=== PATIENT | female | born 2000 | race Caucasian/White ===

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

== ENCOUNTER 2021-04-14 06:50 | Emergency (ER) | payer OTHER ==
[~2021-04-14] VITALS: Ht 172.7 cm; Wt 163.8 kg
[~2021-04-14 06:50] MED LIST: BENZ100C PO; ONDA4TAB12 PO
--- NOTE | 2021-04-14 07:48 | PHYS DOC ---
Past History Past Medical History: No Pertinent History Additional Past Medical Histor: Miscarriages. Past Surgical History: No Surgical History Additional Smoking Information: vaps Alcohol Use: None Drug Use: Marijuana General Adult EDM: Chief Complaint: SHORTNESS OF BREATH HPI: HPI: 20-year-old female presents with 2-day history of cough, congestion, body aches, fatigue. She is not vaccinated against COVID-19. She has not tested positive for COVID-19 in the past. She has not had a fever above 100. Review of Systems: Review of Systems: Constitutional: Denies fever or chills. Body aches, fatigue Eyes: Denies change in visual acuity HENT: Denies nasal congestion or sore throat Respiratory: Cough with intermittent shortness of breath Cardiovascular: Denies chest pain or edema GI: Denies abdominal pain, nausea, vomiting, bloody stools or diarrhea : Denies dysuria Musculoskeletal: Denies back pain or joint pain Integument: Denies rash Neurologic: Denies headache, focal weakness or sensory changes Endocrine: Denies polyuria or polydipsia Lymphatic: Denies swollen glands Psychiatric: Denies depression or anxiety Allergies: Allergies: Allergies Coded Allergies Type Severity Reaction Last Updated Verified No Known Drug Allergies 04/14/21 No Physical Exam: PE: Constitutional: Well developed, well nourished, morbidly obese, no acute distress, non-toxic appearance. [] HENT: Normocephalic, atraumatic, bilateral external ears normal, oropharynx mois t, no oral exudates, nose normal. [] Eyes: PERRLA, EOMI, conjunctiva normal, no discharge. [] Neck: Normal range of motion, no tenderness, supple, no stridor. [] Cardiovascular: Heart rate 97, regular rhythm, no murmur [] Lungs & Thorax: Bilateral breath sounds clear to auscultation [] Abdomen: Bowel sounds normal, soft, no tenderness, no masses, no pulsatile masses. [] Skin: Warm, dry, no erythema, no rash. [] Back: No tenderness, no CVA tenderness. [] Extremities: No tenderness, no cyanosis, no clubbing, ROM intact, no edema. [] Neurologic: Alert and oriented X 3, normal motor function, normal sensory function, no focal deficits noted. [] Psychologic: Affect normal, judgement normal, mood normal. [] Current Patient Data: Vital Signs: Vital Signs Date Time Temp Pulse Resp B/P (MAP) Pulse Ox O2 Delivery O2 Flow Rate FiO2 04/14/21 07:17 99.0 105 18 133/85 (101) 98 Room Air EKG: EKG: [] Radiology/Procedures: Radiology/Procedures: [] Heart Score: C/O Chest Pain: N/A Risk Factors: Risk Factors: DM, Current or recent (<one month) smoker, HTN, HLP, family history of CAD, obesity. Risk Scores: Score 0 - 3: 2.5% MACE over next 6 weeks - Discharge Home Score 4 - 6: 20.3% MACE over next 6 weeks - Admit for Clinical Observation Score 7 - 10: 72.7% MACE over next 6 weeks - Early Invasive Strategies Course & Med Decision Making: Course & Med Decision Making Pertinent Labs and Imaging studies reviewed. (See chart for details) Influenza and COVID-19 tests have been performed. Results are pending and patient will be notified. Her blood pressures within normal limits. Her oxygen saturation is 99% on room air. She does not meet admission criteria. She is stable for discharge at this time. [] Dragon Disclaimer: Dragon Disclaimer: This electronic medical record was generated, in whole or in part, using a voice recognition dictation system. Departure Departure: Impression: Primary Impression: Suspected 2019 novel coronavirus infection Additional Impression: Morbid obesity with BMI of 50.0-59.9, adult Disposition: HOME / SELF CARE / HOMELESS Condition: STABLE Referrals: LUIS DASILVA DO (PCP) Patient Instructions: Viral Syndrome Additional Instructions: You have been tested for or diagnosed with COVID-19. It is an infection caused by a new type of coronavirus. COVID-19 will cause cold-like or mild flu symptoms in most. It can cause more severe symptoms like problems breathing in some. There is no treatment for COVID-19. The body will clear the infection over time. Self-care will help to ease discomfort. Steps to Take: Self-Care Rest as needed. Healthy habits may help you feel better. Steps include: Choose healthy foods including fruits and vegetables. Drink water throughout the day. Get plenty of sleep each night. If you smoke, try to quit. It may ease breathing. Avoid alcohol. Keep Others Healthy The virus can spread to others. Droplets are released every time you sneeze or cough. The droplets can get into the mouth, nose, or eyes of people near you and lead to infection. To lower the chances of spreading COVID-19 to others: Stay at home until your doctor has said it is safe to leave. If you tested positive this will mean staying isolated until both of the following are true: At least 7 days have passed since the start of illness. You are free of fever for at least 72 hours without the use of medicine. During this time: - Avoid public areas, events, or transportation. Do not return to work or school until your doctor has said it is safe to do so. - Call ahead if you need to go to a medical center. Let them know you may have COVID-19. It will help them guide you where to go. They may also ask you to wear a facemask when you come to the office. - If you call for emergency medical services, let them know you may have COVID- 19. While at home: - Try to avoid close contact with others. Stay about 6 feet away. - If possible, spend most of your time in a separate room from others. - Use a face mask if you will be in close contact with others such as sharing a room or vehicle. - Have someone wipe down common surfaces in the home. Use household engine monitor every day on areas like doorknobs, counters, or sinks. - Cough or sneeze into a tissue. Throw the tissue away right after use. If a tissue is not available, cough or sneeze into your elbow. - Wash your hands often. Wash them after sneezing or coughing. Use soap and water and wash for at least 20 seconds. Alcohol based hand roller cleaner can be used if soap and water is not available. - Do not prepare food for others. Avoid sharing personal items like forks, spoons, or toothbrushes. - Avoid close contact with pets while you are sick. There is no evidence of the virus passing to pets. This is a safety step until more is known about this virus. Isolation can be frustrating. Social interaction can help. Keep in touch with friends and family through phone and tech options. You can still interact with others in your home, just keep a safe distance of about 6 feet. Follow-up: Your doctors office will check in with you to see if there are any changes in your health. You may be asked to keep track of symptoms to share with them. They will also le t you know when you are clear to be in public again. Problems to Look Out For: Contact your doctor if your recovery is not going as you expect. Get emergency care if you have problems such as: - Trouble breathing - Nonstop chest pain or pressure - Changes in awareness, confusion, or problems waking - Lips or face have bluish color - Worsening of symptoms If you think you have an emergency, call for emergency medical services right away. As taken from [facility] MADISON CARROLL DO Apr 14, 2021 07:48
[2021-04-14 08:24] LABS: INFLUENZA A PATIENT NEGATIVE (NEGATIVE); INFLUENZA B PATIENT NEGATIVE (NEGATIVE)
[2021-04-14 08:45] VITALS: BP 147/87
== END 2021-04-14 08:45 | disposition home or self-care (01) ==
LOC: ER 06:50
DX: R05.9 Cough, unspecified (principal); R09.81 Nasal congestion; R53.83 Other fatigue; F17.200 Nicotine dependence, unspecified, uncomplicated; E66.01 Morbid (severe) obesity due to excess calories; Z20.822 Contact with and (suspected) exposure to COVID-19; Z68.43 Body mass index [BMI] 50.0-59.9, adult
CPT/HCPCS: 87804; 99283; C9803; U0003

== ENCOUNTER 2021-04-18 15:00 | Emergency (ER) | payer OTHER ==
[~2021-04-18] VITALS: Ht 172.7 cm; Wt 162.6 kg
[2021-04-18 16:28] VITALS: BP 152/100
[2021-04-18] MEDS ORDERED: ALBUTEROL SULFATE 8GM INHALER. INH ONE (17:30)
[2021-04-18 17:48] LABS: BASO % 0 % (0-3); EOS # 0.3 x10^3/uL (0.0-0.7); EOS % 3 % (0-3); HEMATOCRIT 41.3 % (36.0-47.0); HEMOGLOBIN 13.6 g/dL (12.0-15.5); LYMPH # 3.9 x10^3/uL (1.0-4.8); LYMPH % 39 % (24-48); MEAN CORPUSCULAR HEMOGLOBIN 27 pg (25-35); MEAN CORPUSCULAR HGB CONC 33 g/dL (31-37); MEAN CORPUSCULAR VOLUME 83 fL (79-100); MONO # 0.9 x10^3/uL (0.0-1.1); MONO % 9 % (0-9); NEUT % 49 % (31-73); PLATELET COUNT 338 x10^3/uL (140-400); RED BLOOD COUNT 4.97 x10^6/uL (3.50-5.40); RED CELL DISTRIBUTION WIDTH 14.3 % (11.5-14.5); WHITE BLOOD COUNT 10.2 x10^3/uL (4.0-11.0)
--- NOTE | 2021-04-18 18:02 | RAD ---
EXAMINATION: Chest radiograph. VIEWS: 1 COMPARISON: 07/17/2020 INDICATION:20 years, Female, cough. FINDINGS: Normal cardiomediastinal silhouette. Patchy airspace opacity in the right lung base. No pleural effus ion or pneumothorax. No acute osseous process. IMPRESSION: Patchy airspace opacity in the right lung base, may represent atelectatic changes versus pneumonia. Electronically signed by: Elizabeth Silva MD (04/18/2021 6:00 PM) [id number]
[2021-04-18] MEDS ORDERED: PRED20TA PO (18:27)
[2021-04-18] MEDS ORDERED: BACI3.5O4 OD (18:27)
[2021-04-18] MEDS ORDERED: AMOX500C PO (18:27)
--- NOTE | 2021-04-18 18:31 | PHYS DOC ---
Past History Past Medical History: No Pertinent History Additional Past Medical Histor: Miscarriages. Past Surgical History: No Surgical History Alcohol Use: None Drug Use: Marijuana General Adult EDM: Chief Complaint: MULTIPLE COMPLAINTS HPI: HPI: Patient is a 20-year-old female who presents with right-sided ear pain, congestion, cough. Patient states "I have been coughing up blood". Patient states she was checked for Covid last week which was negative. Denies fevers. Denies medical history. Review of Systems: Review of Systems: ROS At least 10 ROS systems have been reviewed and are negative except as documented in the HPI. General: Negative except as outlined in HPI above. Skin: Negative except as outlined in HPI above. HEENT: Negative except as outlined in HPI above. Neck: Negative except as outlined in HPI above. Respiratory: Negative except as outlined in HPI above.. Cardiovascular: Negative except as outlined in HPI above. Abdomen: Negative except as outlined in HPI above. : Negative except as outlined in HPI above. Back/MSK: Negative except as outlined in HPI above. Neuro: Negative except as outlined in HPI above. Psych: Negative except as outlined in HPI above. Current Medications: Current Meds: Current Medications Medications (Trade) Dose Ordered Sig/Joselin Start Time Stop Time Status Last Admin Dose Admin Albuterol Sulfate (Ventolin Hfa Inhaler) 1 puff 1X ONCE 04/18/21 17:30 04/18/21 17:31 DC 04/18/21 17:29 1 PUFF Allergies: Allergies: Allergies Coded Allergies Type Severity Reaction Last Updated Verified No Known Drug Allergies 04/14/21 No Physical Exam: PE: Constitutional: Well developed, well nourished, no acute distress, non-toxic appearance. [] HENT: Normocephalic, atraumatic, bilateral external ears normal, oropharynx moist, oropharynx red, no oral exudates, nasal congestion Eyes: PERRLA, EOMI, conjunctiva normal, no discharge. [] Neck: Normal range of motion, no tenderness, supple, no stridor. [] Cardiovascular:Heart rate regular rhythm, no murmur [] Lungs & Thorax: Bilateral breath sounds clear to auscultation [] Abdomen: Bowel sounds normal, soft, no tenderness, no masses, no pulsatile masses. [] Skin: Warm, dry, no erythema, no rash. [] Back: No tenderness, no CVA tenderness. [] Extremities: No tenderness, no cyanosis, no clubbing, ROM intact, no edema. [] Neurologic: Alert and oriented X 3, normal motor function, normal sensory function, no focal deficits noted. [] Psychologic: Affect normal, judgement normal, mood normal. [] Current Patient Data: Labs: Laboratory Tests Test 04/18/21 17:24 White Blood Count 10.2 x10^3/uL (4.0-11.0) Red Blood Count 4.97 x10^6/uL (3.50-5.40) Hemoglobin 13.6 g/dL (12.0-15.5) Hematocrit 41.3 % (36.0-47.0) Mean Corpuscular Volume 83 fL (79-100) Mean Corpuscular Hemoglobin 27 pg (25-35) Mean Corpuscular Hemoglobin Concent 33 g/dL (31-37) Red Cell Distribution Width 14.3 % (11.5-14.5) Platelet Count 338 x10^3/uL (140-400) Neutrophils (%) (Auto) 49 % (31-73) Lymphocytes (%) (Auto) 39 % (24-48) Monocytes (%) (Auto) 9 % (0-9) Eosinophils (%) (Auto) 3 % (0-3) Basophils (%) (Auto) 0 % (0-3) Neutrophils # (Auto) 5.0 x10^3uL (1.8-7.7) Lymphocytes # (Auto) 3.9 x10^3/uL (1.0-4.8) Monocytes # (Auto) 0.9 x10^3/uL (0.0-1.1) Eosinophils # (Auto) 0.3 x10^3/uL (0.0-0.7) Basophils # (Auto) 0.0 x10^3/uL (0.0-0.2) Vital Signs: Vital Signs Date Time Temp Pulse Resp B/P (MAP) Pulse Ox O2 Delivery O2 Flow Rate FiO2 04/18/21 16:28 115 18 152/100 (117) 98 EKG: EKG: [] Radiology/Procedures: Radiology/Procedures: [] Heart Score: C/O Chest Pain: No Risk Factors: Risk Factors: DM, Current or recent (<one month) smoker, HTN, HLP, family history of CAD, obesity. Risk Scores: Score 0 - 3: 2.5% MACE over next 6 weeks - Discharge Home Score 4 - 6: 20.3% MACE over next 6 weeks - Admit for Clinical Observation Score 7 - 10: 72.7% MACE over next 6 weeks - Early Invasive Strategies Course & Med Decision Making: Course & Med Decision Making Pertinent Labs and Imaging studies reviewed. (See chart for details) [] 20-year-old female presents with right-sided ear pain, congestion and cough. Patient reports she has been coughing up blood. Work-up in ER consisted of CBC, chest x-ray, albuterol inhaler. Hemoglobin 13.6, hematocrit 41.3. All other labs unremarkable. Chest x-ray is unremarkable. Discussed all results with patient. Sending patient home with antibiotic for AOM. Patient given 1 dose of prednisone while in the ER. And sent home with prescription for prednisone. Dragon Disclaimer: DragInstaMed Disclaimer: This electronic medical record was generated, in whole or in part, using a voice recognition dictation system. Departure Departure: Impression: Primary Impression: Blepharitis Qualified Codes: H01.001 - Unspecified blepharitis right upper eyelid Additional Impression: Acute otitis media Qualified Codes: H66.90 - Otitis media, unspecified, unspecified ear Disposition: 01 HOME / SELF CARE / HOMELESS Condition: STABLE Referrals: LUIS DASILVA DO (PCP) Patient Instructions: Cough, Adult, Xtll-hi-Ekin Additional Instructions: You were seen in the emergency room for ear pain, congestion, sore throat, swollen right eyelid. all of your labs were unremarkable. Chest x-ray was unremarkable. Sending you home with a prescription for erythromycin to apply to your eyelid. You can also use warm compresses 4 times a day, 15 minutes at a time. Avoid eye make-up. I am giving you a steroid while in the ER along with a inhaler. And send you home with a prescription for steroids. Please return to the emergency room if you have worsening symptoms or concerns EMERGENCY DEPARTMENT GENERAL DISCHARGE INSTRUCTIONS Thank you for coming to [facility] (ED) today and trusting us with you care. We trust that you had a positivie experience in our Emergency Department. If you wish to speak to the department management, you may call the director at [phone]. YOUR FOLLOW UP INSTRUCTIONS ARE FOLLOWS: 1. Do you have a private Doctor? If you do not have a private doctor, please ask for a resource list of physicians or clinics that may be able to assist you with follow up care. 2. The Emergency Physician has interpreted your x-rays. The X-Ray specialist will also review them. If there is a change in the findings, you will be notified in 48 hours when at all possible. 3. A lab test or culture has been done, your results will be reviewed and you will be notified if you need a change in treatment. ADDITIONAL INSTRUCTIONS AND INFORMATION: 1. Your care today has been supervised by a physician who is specially trained in emergency care. Many problems require more than one evaluation for a complete diagnosis and treatment. We recommend that you schedule your follow up appointment as recommended to ensure complete treatment of you illness or injury. If you are unable to obtain follow up care and continue to have a problem, or if your condition worsens, we recommend that you return to the ED. 2. We are not able to safely determine your condition over the phone nor are we able to give sound medical advice over the phone. For these safety reasons, if you call for medical advice we will ask you to come to the ED for further evaluation. 3. If you have any questions regarding these discharge instructions please call the ED at [phone]. SAFETY INFORMATION: In the interest of safety, wellness, and injury prevention; we encourage you to wear your sealbelt, if you smoke; quite smoking, and we encourage family to use a protective helmet for bicycling and other sporting events that present an increased risk for head injury. IF YOUR SYMPTOMS WORSEN OR NEW SYMPTOMS DEVELOP, OR YOU HAVE CONCERNS ABOUT YOUR CONDITION; OR IF YOUR CONDITION WORSENS WHILE YOU ARE WAITING FOR YOUR FOLLOW UP APPOINTMENT; EITHER CONTACT YOUR PRIMARY CARE DOCTOR, THE PHYSICIAN WHOSE NAME AND NUMBER YOU WERE GIVEN, OR RETURN TO THE ED IMMEDIATELY. Scripts Amoxicillin (AMOXICILLIN) 500 Mg Capsule 1 CAP PO BID for infection for 10 Days, #20 CAP Prov: EDUARDO RODRIGUES APRN 04/18/21 Prednisone (PREDNISONE) 20 Mg Tablet 3 TAB PO DAILY for allergies for 5 Days, #15 TAB Prov: EDUARDO RODRIGUES APRN 04/18/21 Bacitracin/Polymyxin B Sulfate (BACITRACIN-POLYMYXIN EYE OINT) 3.5 Gm Oint...g. 1 YOLI OD BID for BLEPHARITIS for 10 Days, #1 GM 0 Refills Prov: EDUARDO RODRIGUES PRECISION LENS CENTERER AND EDGER 04/18/21 EDUARDO RODRIGUES APRN Apr 18, 2021 18:31
[2021-04-18] MEDS ORDERED: predniSONE 20 MG TABLET PO ONE (19:00)
== END 2021-04-18 18:37 | disposition home or self-care (01) ==
LOC: ER 15:00
DX: H01.001 Unspecified blepharitis right upper eyelid (principal); H66.91 Otitis media, unspecified, right ear
CPT/HCPCS: 36415; 71045; 85025; 94640; 99284; 94664

== ENCOUNTER 2021-04-26 11:05 | Emergency (ER) | payer OTHER ==
[~2021-04-26] VITALS: Ht 172.7 cm; Wt 162.6 kg
[~2021-04-26 11:05] MED LIST changes: +AMOX500C PO; +BACI3.5O4 OD; +PRED20TA PO
[2021-04-26] MEDS ORDERED: IV NORMAL SALINE 1,000ML 1,000 ML IV ONE (11:30)
--- NOTE | 2021-04-26 11:34 | PHYS DOC ---
Past History Past Medical History: No Pertinent History Additional Past Medical Histor: Miscarriages. (TERRI MORALES APRN) Past Surgical History: No Surgical History (TERRI MORALES APRN) Alcohol Use: None Drug Use: Marijuana (TERRI MORALES APRN) General Adult EDM: Chief Complaint: MULTIPLE COMPLAINTS HPI: HPI: Patient is a 20-year-old female who presents to the emergency department for multiple complaints. Patient reports that she took MDMA 4 days ago and slept for 4 days following and since taking MDMA she has been experiencing intermittent midsternal chest pain brain fog, nausea, productive cough, and feeling shaky. Patient reports that the chest pain feels like her chest "is hollow". No alleviating or aggravating factors. She states that currently her chest "feels weird" and when she does experience pain it is 2 out of 10. No treatment prior to arrival. Patient is experiencing brain fog she says it is hard for her to focus on things. She does not appear very anxious. Patient states that she does not want to get in trouble for using the MDMA, I informed patient that she will not get in trouble as we do not report this. Patient denies any shortness of breath, vomiting, fevers. (TERRI MORALES APRN) Review of Systems: Review of Systems: 14 body systems of the review of systems have been reviewed. See HPI for pertinent positive and negative responses, otherwise all other systems are negative, nonpertinent or noncontributory (TERRI MORALES APRN) Allergies: Allergies: Allergies Coded Allergies Type Severity Reaction Last Updated Verified No Known Drug Allergies 04/14/21 No (TERRI MORALES APRN) Physical Exam: PE: Constitutional: Well developed, well nourished, no acute distress, non-toxic appearance. [] HENT: Normocephalic, atraumatic, bilateral external ears normal, oropharynx moist, no oral exudates, nose normal. [] Eyes: PERRL, 4 mm pupils bilaterally, EOMI, conjunctiva normal, no discharge. [] Neck: Normal range of motion, no tenderness, supple, no stridor. [] Cardiovascular:Heart rate regular rhythm, no murmur, chest pain reproducible with palpation [] Lungs & Thorax: Bilateral breath sounds clear to auscultation [] Abdomen: Bowel sounds normal, soft, no tenderness, no masses, no pulsatile m asses. [] Skin: Warm, dry, no erythema, no rash. [] Back: Normal range of motion Extremities: No tenderness, no cyanosis, no clubbing, ROM intact, no edema. [] Neurologic: Alert and oriented X 3, normal motor function, normal sensory function, no focal deficits noted, equal video engineer strengths, patient moving all 4 extremities equally. [] Psychologic: Affect normal, judgement normal, mood normal. [] (TERRI MORALES APRN) Current Patient Data: Labs: Laboratory Tests Test 04/26/21 11:55 04/26/21 13:10 White Blood Count 11.9 x10^3/uL Red Blood Count 5.35 x10^6/uL Hemoglobin 14.5 g/dL Hematocrit 44.3 % Mean Corpuscular Volume 83 fL Mean Corpuscular Hemoglobin 27 pg Mean Corpuscular Hemoglobin Concent 33 g/dL Red Cell Distribution Width 14.4 % Platelet Count 465 x10^3/uL Neutrophils (%) (Auto) 61 % Lymphocytes (%) (Auto) 28 % Monocytes (%) (Auto) 7 % Eosinophils (%) (Auto) 3 % Basophils (%) (Auto) 1 % Neutrophils # (Auto) 7.3 x10^3uL Lymphocytes # (Auto) 3.3 x10^3/uL Monocytes # (Auto) 0.9 x10^3/uL Eosinophils # (Auto) 0.4 x10^3/uL Basophils # (Auto) 0.1 x10^3/uL Sodium Level 138 mmol/L Potassium Level 4.4 mmol/L Chloride Level 102 mmol/L Carbon Dioxide Level 28 mmol/L Anion Gap 8 Blood Urea Nitrogen 7 mg/dL Creatinine 0.7 mg/dL Estimated GFR (Cockcroft-Gault) 107.8 BUN/Creatinine Ratio 10 Glucose Level 131 mg/dL Calcium Level 9.3 mg/dL Total Bilirubin 0.3 mg/dL Aspartate Amino Transf (AST/SGOT) 27 U/L Alanine Aminotransferase (ALT/SGPT) 69 U/L Alkaline Phosphatase 108 U/L Troponin I High Sensitivity 5 ng/L Total Protein 8.6 g/dL Albumin 3.7 g/dL Albumin/Globulin Ratio 0.8 Urine Collection Type Clean catch Urine Color Yellow Urine Clarity Clear Urine pH 5.5 Urine Specific [place] 1.025 Urine Protein Neg Urine Glucose (UA) Neg mg/dL Urine Ketones (Stick) Neg mg/dL Urine Blood Small Urine Nitrite Neg Urine Bilirubin Neg Urine Urobilinogen Dipstick 0.2 mg/dL Urine Leukocyte Esterase Neg Urine RBC 3-5 /HPF Urine WBC 0 /HPF Urine Squamous Epithelial Cells Many /LPF Urine Bacteria 0 /HPF Urine Opiates Screen Neg Urine Methadone Screen Neg Urine Barbiturates Neg Urine Phencyclidine Screen Neg Urine Amphetamine/Methamphetamine Neg Urine Benzodiazepines Screen Neg Urine Cocaine Screen Neg Urine Cannabinoids Screen Neg Urine Ethyl Alcohol Neg Current Medications Medications (Trade) Dose Ordered Sig/Joselin Route PRN Reason Start Time Stop Time Status Last Admin Dose Admin Sodium Chloride 1,000 ml @ 1,000 mls/hr 1X ONCE IV 04/26/21 11:30 04/26/21 12:29 DC 04/26/21 11:30 (TERRI MORALES APRN) EKG: EKG: [] (TERRI MORALES APRN) Radiology/Procedures: Radiology/Procedures: []PROCEDURE: CT HEAD WO CONTRAST CT head without contrast dated 04/26/2021 2:17 PM Comparison: None CLINICAL INDICATION: Headache and visual changes TECHNIQUE: Contiguous axial imaging of the head was performed from skull base to vertex. One or more of the following individualized dose reduction techniques were utilized for this examination: 1. Automated exposure control 2. Adjustment of the mA and/or kV according to patient size 3. Use of iterative reconstruction technique. FINDINGS: Ventricles and sulci are within normal limits for age. No midline shift or mass effect. Brain parenchyma is of normal attenuation. No hemorrhage or extra-axial collection. Posterior fossa and brainstem unremarkable. Subtotal opacification of the bilateral ethmoid air cells and right maxillary sinus. Mild mucosal thickening of the sphenoid sinuses and left maxillary sinus. Mastoid air cells are clear. IMPRESSION: 1. No evidence of acute intracranial hemorrhage or mass. 2. Moderate sinus disease. Electronically signed by: Too Beal MD (04/26/2021 2:18 PM) [facility] [place] SIGNED BY: TOO BEAL MD DATE: 04/26/21 1417 CC: EMERGENCY,DEPARTMENT; TERRI MORALES APRN; LUIS DASILVA DO ~MTH0 0 (TERRI MORALES APRN) Heart Score: C/O Chest Pain: Yes HEART Score for Chest Pain: HEART Score for Chest Pain Response (Comments) Value History Slighlty/Non-Suspicious 0 ECG Normal 0 Age > 65 2 Risk Factors 1 or 2 Risk Factors 1 Troponin < Normal Limit 0 Total 3 Risk Factors: Risk Factors: DM, Current or recent (<one month) smoker, HTN, HLP, family history of CAD, obesity. Risk Scores: Score 0 - 3: 2.5% MACE over next 6 weeks - Discharge Home Score 4 - 6: 20.3% MACE over next 6 weeks - Admit for Clinical Observation Score 7 - 10: 72.7% MACE over next 6 weeks - Early Invasive Strategies (TERRI MORALES APRN) Course & Med Decision Making: Course & Med Decision Making Pertinent Labs and Imaging studies reviewed. (See chart for details) [] Patient presents to the emergency department for multiple complaints including chest pain, brain fog, shakiness, nausea, productive cough after using MDMA 4 days ago. Work-up in the ER consisted of blood work, EKG, COVID testing, chest x-ray. Patient treated with IV fluids. Lab work was unremarkable. Vital signs have improved. Patient reports that she continues to have symptoms of headache and intermittent blurred vision. Patient is requesting CT imaging of her head this was performed which showed moderate sinus disease and patient was treated with an antibiotic for sinusitis.. Patient informed of these symptoms could be due to COVID-19, sinusitis versus her anxiety and drug use. Patient advised to self isolate until she receives her COVID results. She was also advised to follow-up with her primary care provider regarding her anxiety and discontinue drug use. I discussed with patient all findings and diagnostic testing as well as the need to follow-up with PCP for further evaluation and treatment or return to the ER if any new or worsening symptoms. Strict return precautions were also discussed at length. Patient voiced understanding and agreement with the plan. Patient is hemodynamically stable at the time of disposition. (TERRI MORALES APRN) Dragon Disclaimer: Dragon Disclaimer: This electronic medical record was generated, in whole or in part, using a voice recognition dictation system. (TERRI MORALES APRN) Attending Co-Sign The patient was seen and interviewed as well as examined at the bedside. The art was reviewed. The case was discussed. Agree with the plan of care. (MADISON CARROLL DO) Departure Departure: Impression: Primary Impression: Person under investigation for COVID-19 Additional Impression: Sinusitis Qualified Codes: J32.9 - Chronic sinusitis, unspecified Disposition: HOME / SELF CARE / HOMELESS Condition: GOOD Referrals: LUIS DASILVA DO (PCP) Patient Instructions: Drug Abuse, FAQs, Sinusitis Additional Instructions: You were seen in the emergency department today for chest pain, brain fog, shakiness, nausea and a cough. Your work-up in the ER was unremarkable. Your CT scan did show sinusitis which will be treated with an antibiotic. Please start and finish it completely. We tested you for COVID-19 and this is pending and you will be notified of those results when they become available in approximately 1 to 2 days. Please self isolate until you receive these results. You appeared to be very anxious in the emergency department and this along with your drug use could be contributing to your symptoms. Please follow-up with your primary care provider regarding your ER visit tomorrow. Please return to the emergency department if you develop chest pain, shortness of breath, high fevers refractory to treatment, intractable nausea or vomiting, difficulty walking or unilateral weakness. Scripts Amoxicillin/Potassium Clav (AUGMENTIN 875-125 TABLET) 1 Each Tablet 1 TAB PO BID for sinusitis for 10 Days, #20 TAB 0 Refills Prov: TERRI MORALES APRN 04/26/21 TERRI MORALES APRN Apr 26, 2021 11:34 MADISON CARROLL DO Apr 27, 2021 08:28
--- NOTE | 2021-04-26 12:19 | EKG ---
[address] [address] Test Date: 2021-04-26 Test Time: 12:09:34 Pat Name: BARTOLO FRANCO Department: Room: Gender: F Associate Professor Of Anthropology: MARIO : 2000 Requested By: TERRI MORALES Order Number: [id number] Reading MD: Measurements Intervals [place] Rate: 90 P: 39 [place]: 144 QRS: 16 QRSD: 90 T: 18 QT: 346 QTc: 427 Interpretive Statements SINUS RHYTHM INCOMPLETE RIGHT BUNDLE BRANCH BLOCK OTHERWISE NORMAL ECG RI6.02 No previous ECG available for comparison
[2021-04-26 12:27] LABS: CALCIUM 9.3 mg/dL (8.5-10.1); CREATININE 0.7 mg/dL (0.6-1.0); GFR 107.8; POTASSIUM 4.4 mmol/L (3.5-5.1)
[2021-04-26 12:31] LABS: BASO # 0.1 x10^3/uL (0.0-0.2); BASO % 1 % (0-3); EOS # 0.4 x10^3/uL (0.0-0.7); EOS % 3 % (0-3); HEMATOCRIT 44.3 % (36.0-47.0); HEMOGLOBIN 14.5 g/dL (12.0-15.5); LYMPH # 3.3 x10^3/uL (1.0-4.8); LYMPH % 28 % (24-48); MEAN CORPUSCULAR HEMOGLOBIN 27 pg (25-35); MEAN CORPUSCULAR HGB CONC 33 g/dL (31-37); MEAN CORPUSCULAR VOLUME 83 fL (79-100); MONO # 0.9 x10^3/uL (0.0-1.1); MONO % 7 % (0-9); NEUT # 7.3 x10^3uL (1.8-7.7); NEUT % 61 % (31-73); PLATELET COUNT 465 x10^3/uL (140-400); RED BLOOD COUNT 5.35 x10^6/uL (3.50-5.40); RED CELL DISTRIBUTION WIDTH 14.4 % (11.5-14.5); WHITE BLOOD COUNT 11.9 x10^3/uL (4.0-11.0)
[2021-04-26 12:33] LABS: ALBUMIN 3.7 g/dL (3.4-5.0); ALBUMIN/GLOBULIN RATIO 0.8 (1.0-1.7); TOTAL BILIRUBIN 0.3 mg/dL (0.2-1.0); TOTAL PROTEIN 8.6 g/dL (6.4-8.2)
[2021-04-26 13:50] LABS: BARBITURATES NEG (NEG); BENZODIAZEPINES NEG (NEG); CANNABINOIDS NEG (NEG); COCAINE NEG (NEG); METHADONE NEG (NEG); OPIATES NEG (NEG); PHENCYCLIDINE NEG (NEG)
[2021-04-26 13:54] LABS: AMPHETAMINE/METHAMPHETAMINE NEG (NEG)
[2021-04-26 14:01] VITALS: BP 153/84
[2021-04-26 14:14] LABS: BILIRUBIN,URINE NEG (NEG); CLARITY,URINE CLEAR; COLOR,URINE YELLOW; GLUCOSE,URINE NEG (NEG); UROBILINOGEN,URINE 0.2 mg/dL (0.2 mg/dL)
[2021-04-26 14:15] LABS: BACTERIA,URINE 0 /HPF (0-FEW); NITRITE,URINE NEG (NEG); SQUAMOUS EPITHELIAL CELL,UR MANY /LPF; WBC,URINE 0 /HPF (0-4)
--- NOTE | 2021-04-26 14:21 | RAD ---
CT head without contrast dated 04/26/2021 2:17 PM Comparison: None CLINICAL INDICATION: Headache and visual changes TECHNIQUE: Contiguous axial imaging of the head was performed from skull base to vertex. One or more of the following individualized dose reduction techniques were utilized for this examinat ion: 1. Automated exposure control 2. Adjustment of the mA and/or kV according to patient size 3. Use of iterative reconstruction technique. FINDINGS: Ventricles and sulci are within normal limits for age. No midline shift or mass effect. Brain parench yma is of normal attenuation. No hemorrhage or extra-axial collection. Posterior fossa and brainstem unremarkable. Subtotal opacification of the bilateral ethmoid air cells and right maxillary sinus. Mild mucosal thi ckening of the sphenoid sinuses and left maxillary sinus. Mastoid air cells are clear. IMPRESSION: 1. No evidence of acute intracranial hemorrhage or mass. 2. Moderate sinus disease. Electronically signed by: Too Beal MD (04/26/2021 2:18 PM) [place]
[2021-04-26] MEDS ORDERED: AMOX1TAB61 PO (14:28)
== END 2021-04-26 14:50 | disposition home or self-care (01) ==
LOC: ER 11:05
DX: J32.9 Chronic sinusitis, unspecified (principal); Z20.822 Contact with and (suspected) exposure to COVID-19
CPT/HCPCS: 70450; 80053; 80307; 81001; 84484; 85025; 93005; 96360; 96361; 99285; C9803; J7030; U0003